=== PATIENT | male | born 1985 | race Asian ===

== ENCOUNTER → 2017-04-06 09:53 | Emergency (ER) | payer BC, OTHER ==
[~2017-04-06 09:53] MED LIST: Aspirin Low Dose CHEW TAB* 81 MG PO ONE
[2017-04-06 10:37] LABS: Urine Bilirubin Negative (Negative); Urine Glucose Negative (Negative); Urine Nitrite Negative (Negative)
--- NOTE | 2017-04-06 10:37 | RAD ---
HISTORY: Chest pain COMPARISONS: None VIEWS:1: Single frontal portable view of the chest at 10:35 AM FINDINGS: LINES AND TUBES: None. CARDIOMEDIASTINAL SILHOUETTE: The cardiomediastinal silhouette is normal for portable technique. PLEURA: The costophrenic angles are sharp. No pleural abnormalities are noted. LUNG PARENCHYMA: The lungs are clear. ABDOMEN: The upper abdomen is clear. There is no subphrenic gas. BONES AND SOFT TISSUES: No bone or soft tissue abnormalities are noted. IMPRESSION: NO ACTIVE CARDIOPULMONARY DISEASE.
[2017-04-06 10:52] LABS: Hematocrit 45 % (42-52); Hemoglobin 15.3 g/dl (14.0-18.0); Mean Corpuscular HGB Conc 34 g/dl (31-36); Mean Corpuscular Hemoglobin 29 pg (27-31); Mean Corpuscular Volume 86 fL (80-94); Mean Platelet Volume 9 um3 (7.4-10.4); Red Cell Distribution Width 13 % (10.5-15); White Blood Count 7.3 10^3/ul (3.5-10.8)
[2017-04-06 11:08] LABS: Troponin I 0.01 ng/mL (<0.04)
[2017-04-06 11:20] LABS: Albumin 4.7 g/dL (3.2-5.2); BUN/Creatinine Ratio 15.1 (8-20); Calcium 9.3 mg/dL (8.6-10.3); EGFR African American 135.2 (>60); EGFR Non-African American 105.1 (>60); Globulin 2.6 g/dL (2-4); Total Bilirubin 0.5 mg/dL (0.2-1.0); Total Protein 7.3 g/dL (6.4-8.9)
[2017-04-06 11:47] LABS: Potassium 4.5 mmol/L (3.5-5.0)
[2017-04-06 12:11] LABS: T4 4.99 mcg/mL (6.09-12.23)
[2017-04-06 12:12] LABS: TSH (Thyroid Stimulating Horm) 3.17 mcIU/mL (0.34-5.60)
[2017-04-06 14:03] VITALS: BP 141/78
--- NOTE | 2017-04-06 18:59 | ED ---
Hugo Gonzalez Billy, scribed for Mika Henry MD on 04/06/17 at 1044 . HPI Chest Pain - HPI Summary HPI Summary: Patient is a previously healthy 31 year-old male coming to [facility] for evaluation of left lower anterior chest pain and arm pain since 0600 this morning. He states that during the onset of his pain, he "thought it was heartburn." However , he became increasingly more concerned due to the presence of his arm pain. He reports moderate severity at onset, but the pain improved spontaneously and he states that his pain is now mild. Pain is not changed with deep inspiration. Denies nausea, vomiting, dizziness, lightheadeness, cough, shortness of breath, or diaphoresis. Denies fever. Patient reports a similar episode of pain in the past where he was seen and treated at [facility] [place]. He had an EKG done at the time which was read as normal. - History of Current Complaint Chief Complaint: EDChestPainROMI Time Seen by Provider: 04/06/17 10:37 Hx Obtained From: Patient Onset/Duration: Started Hours Ago, Still Present Time of Onset: 06:00 Timing: Constant Initial Severity: Moderate Current Severity: Mild Pain Intensity: 4 Pain Scale Used: 0-10 Numeric Chest Pain Location: Left Anterior Chest Pain Radiates: Yes Chest Pain Radiates To:: Arm Aggravating Factor(s): Nothing Alleviating Factor(s): Nothing Associated Signs and Symptoms: Positive: Chest Pain. Negative: Dizziness, Shortness of Breath, Lightheadedness, Diaphoresis, Nausea, Abdominal Pain, Vomiting - Allergy/Home Medications Allergies/Adverse Reactions: Allergies Allergy/AdvReac Type Severity Reaction Status Date / Time No Known Allergies Allergy Verified 04/06/17 13:48 PMH/Surg Hx/FS Hx/Imm Hx Endocrine/Hematology History: Denies: Hx Diabetes Cardiovascular History: Denies: Hx Myocardial Infarction EENT History: Reports: Hx Seasonal Allergies Infectious Disease History: Denies: Traveled Outside the [place] in Last 30 Days - Family History Family History: Father had a pacemaker after age 60. Mother has a history of palpitations. - Social History Alcohol Use: None Hx Substance Use: No Substance Use Type: Reports: None Hx Tobacco Use: No Smoking Status (MU): Never Smoked Tobacco Review of Systems Negative: Fever, Chills, Skin Diaphoresis Positive: Chest Pain Negative: Abdominal Pain, Vomiting, Nausea All Other Systems Reviewed And Are Negative: Yes Physical Exam - Summary Physical Exam Summary: VITAL SIGNS: Reviewed. GENERAL: Patient is a well-developed and nourished male who is lying comfortable in the stretcher. Patient is not in any acute respiratory distress. HEAD AND FACE: No signs of trauma. No ecchymosis, hematomas or skull depressions. No sinus tenderness. EYES: PERRLA, EOMI x 2, No injected conjunctiva, no nystagmus. EARS: Hearing grossly intact. Ear canals and tympanic membranes are within normal limits. MOUTH: Oropharynx within normal limits. NECK: Supple, trachea is midline, no adenopathy, no JVD, no carotid bruit, no c- spine tenderness, neck with full ROM. CHEST: Symmetric, no tenderness at palpation LUNGS: Clear to auscultation bilaterally. No wheezing or crackles. CVS: Regular rate and rhythm, S1 and S2 present, no murmurs or gallops appreciated. ABDOMEN: Soft, non-tender. No signs of distention. No rebound no guarding, and no masses palpated. Bowel sounds are normal. EXTREMITIES: FROM in all major joints, no edema, no cyanosis or clubbing. NEURO: Alert and oriented x 3. No acute neurological deficits. Speech is normal and follows commands. SKIN: Dry and warm Triage Information Reviewed: Yes Vital Signs On Initial Exam: Initial Vitals Temp Pulse BP Pulse Ox 98.7 F 100 155/96 100 04/06/17 10:13 04/06/17 10:13 04/06/17 10:13 04/06/17 10:13 Vital Signs Reviewed: Yes Diagnostics - Vital Signs Vital Signs Temp Pulse BP Pulse Ox 04/06/17 10:13 98.7 F 100 155/96 100 - Laboratory Lab Results: Lab Results 04/06/17 Range/Units 10:24 Urine Color Colorless Urine Appearance Clear Urine pH 6.0 (5-9) Ur Specific [place] 1.002 L (1.010-1.030) Urine Protein Negative (Negative) Urine Ketones Negative (Negative) Urine Blood Negative (Negative) Urine Nitrate Negative (Negative) Urine Bilirubin Negative (Negative) Urine Urobilinogen Negative (Negative) Ur Leukocyte Esterase Negative (Negative) Urine Glucose Negative (Negative) Result Diagrams: 04/06/17 10:35 04/06/17 10:35 Lab Statement: Any lab studies that have been ordered have been reviewed, and results considered in the medical decision making process. - Radiology CXR Xray Interpretation: No Acute Changes Radiology Interpretation Completed By: Radiologist - EKG 1015 EKG Interpretation: NSR 77 bpm, no STEMI Re-Evaluation - Re-Evaluation First Eval Re-Evaluation Time: 13:58 Change: Improved Comment: Labs and imaging reviewed with the patient. Chest Pain Course/Dx - Course Assessment/Plan: Patient is a previously healthy 31 year-old male coming to [facility] for evaluation of left lower anterior chest pain and arm pain since 0600 this morning. He states that during the onset of his pain, he "thought it was heartburn." However, he became increasingly more concerned due to the presence of his arm pain. He reports moderate severity at onset, but the pain improved spontaneously and he states that his pain is now mild. Pain is not changed with deep inspiration. Denies nausea, vomiting, dizziness, lightheadeness, cough, shortness of breath, or diaphoresis. Denies fever. Patient reports a similar episode of pain in the past where he was seen and treated at [facility] [place]. He had an EKG done at the time which was read as normal. Test results WNL except for glucose of 113. T4 of 4.99. UA is negative for UTI. CXR shows no active cardiopulmonary disease. EKG shows NSR without ST elevation. Troponin #1 was 0.01. Troponin #2 is 0.02. The patient is asymptomatic, and will therefore be discharged home to follow up with PCP. He is hemodynamically stable, A&Ox3. I discussed all the findings and test results with the patient. Patient was instructed to return to the emergency room immediately if any of the symptoms return or worsens. Plan of care was discussed with the patient and understands and agrees. All questions were answered at patient satisfaction. There were no further complaints or concerns. Lung exam before discharge: CTA B/L. Good air exchange. No wheezing or crackles heard. CVS: S1 and S2 present. No murmurs appreciated. Patient is alert and oriented x 3. Patient is hemodynamically stable. Patient will be discharged home with follow up PCP in the next 2-3 days - Chest Pain Differential Diagnosis/HQI/PQRI: Acute KS, ACS, Angina, CHF, Chest Wall, GI Disease, Lower Respiratory Infection - Diagnoses Provider Diagnoses: Atypical chest pain Discharge - Discharge Plan Condition: Stable Disposition: HOME Patient Education Materials: Noncardiac Chest Pain (ED) Referrals: [facility] [Outside] The documentation as recorded by the Hugo cope Billy accurately reflects the service I personally performed and the decisions made by me, Mika Henry MD.
== END | disposition home or self-care (01) ==
LOC: ED 09:53
DX: R07.89 Other chest pain (principal)
CPT/HCPCS: 36415; 71010; 80053; 81003; 82550; 82553; 83605; 83735; 83880; 84436; 84443; 84484; 85025; 93005; 99283